=== PATIENT | female | born 1930 | race Caucasian/White ===

== ENCOUNTER 2017-08-22 09:51 | Emergency (ER) | payer MEDICARE ==
[~2017-08-22] VITALS: Ht 157.5 cm; Wt 65.8 kg
[~2017-08-22 09:51] MED LIST: CODACE30 PO; DIAZ5 PO; HYDACE5 PO; IBUP600 PO; METO25ER PO; NAPR500 PO; Norco 5-325 Ta1 EACH PO; ONDA4 PO; ONDA8 PO; PRAV10 PO; PRAV20 PO; PRED10 PO; TIMDOROPSO
[2017-08-22 10:33] LABS: BASOPHILS ABSOLUTE AUTO 0.06 K/mm3 (0.00-0.23); BASOPHILS PERCENT AUTO 1 % (0-2); EOSINOPHILS ABSOLUTE AUTO 0.12 K/mm3 (0.00-0.68); EOSINOPHILS PERCENT AUTO 1 % (0-6); Hematocrit 36.2 % (33.0-51.0); Hemoglobin 11.8 g/dL (11.5-16.0); IMMATURE GRAN ABSOLUTE AUTO 0.03 K/mm3 (0.00-0.10); IMMATURE GRAN PERCENT AUTO 0 % (0-1); LYMPHOCYTES ABSOLUTE AUTO 1.46 K/mm3 (0.84-5.20); LYMPHOCYTES PERCENT AUTO 17 % (21-46); MONOCYTES ABSOLUTE AUTO 0.74 K/mm3 (0.16-1.47); MONOCYTES PERCENT AUTO 9 % (4-13); Mean Corpuscular HGB Conc 32.6 g/dL (31.5-36.5); Mean Corpuscular Volume 89 fL (80-100); Mean Platelet Volume 11.2 fL (9.1-12.4); NEUTROPHILS ABSOLUTE AUTO 6.24 K/mm3 (1.96-9.15); NEUTROPHILS PERCENT AUTO 72 % (41-73); Platelet Count 251 K/mm3 (150-400); RDW Standard Deviation 45.4 fL (35.1-46.3); Red Blood Cell Count 4.07 M/mm3 (3.80-5.20); White Blood Cell Count 8.65 K/mm3 (4.00-11.30)
[2017-08-22 10:49] LABS: Anion Gap 12 mmol/L (6-16); Blood Urea Nitrogen 19 mg/dL (8-24); Bun/Creatinine Ratio 28.6 (12.0-20.0); CO2, Blood 23 mmol/L (21-32); Calcium, Blood 8.7 mg/dL (8.5-10.1); Chloride, Blood 107 mmol/L (98-108); Creatinine, Blood 0.66 mg/dL (0.40-1.00); Glomerular Filtration Rate >60 (60-); Glucose, Blood 104 mg/dL (70-99); Potassium, Blood 3.6 mmol/L (3.5-5.5); Sodium, Blood 142 mmol/L (136-145)
[2017-08-22] MEDS ORDERED: Norco 5-325 Ta1 EACH PO (11:43)
== END 2017-08-22 12:38 | disposition home or self-care (01) ==
LOC: ER 09:51
PROVIDERS: Emergency Medicine
DX: S01.112A Laceration without foreign body of left eyelid and periocular area, initial encounter (principal); Z79.899 Other long term (current) drug therapy; Z79.52 Long term (current) use of systemic steroids; I10 Essential (primary) hypertension; W01.198A Fall on same level from slipping, tripping and stumbling with subsequent striking against other object, initial encounter
CPT/HCPCS: 12011; 29125; 36415; 70450; 73110; 80048; 85025; 93005; 93010; 96374; 99284; J3010

== ENCOUNTER 2019-04-23 17:37 | Emergency (ER) | payer MEDICARE ==
[~2019-04-23] VITALS: Ht 157.5 cm; Wt 52.2 kg
[2019-04-23 20:00] LABS: Calcium, Ionized (POC) 1.08 mmol/L (1.10-1.46); Chloride (POC) 105 mmol/L (98-108); Creatinine (POC) 0.7 mg/dL (0.6-1.0); Glucose (ISTAT POC) 84 mg/dL (70-99); Hemoglobin (POC) 11.6 g/dL (12.0-16.0); Potassium (POC) 3.4 mmol/L (3.5-5.5); Sodium (POC) 139 mmol/L (135-148); Total CO2 (POC) 25 mmol/L (21-32)
== END 2019-04-23 21:02 | disposition home or self-care (01) ==
LOC: ER 17:37
PROVIDERS: Emergency Medicine
DX: M79.18 Myalgia, other site (principal); Z79.899 Other long term (current) drug therapy; I10 Essential (primary) hypertension; E78.5 Hyperlipidemia, unspecified
CPT/HCPCS: 36415; 80047; 85014; 93005; 93010; 99284-25

== ENCOUNTER 2019-08-20 13:59 | Observation (INO) | payer MEDICARE ==
[~2019-08-20] VITALS: Ht 152.4 cm; Wt 52.9 kg
[~2019-08-20 13:59] MED LIST changes: -METO25ER PO
[2019-08-20 14:25] LABS: Source, Urine Catheter
[2019-08-20 14:30] LABS: BASOPHILS ABSOLUTE AUTO 0.05 K/mm3 (0.00-0.23); BASOPHILS PERCENT AUTO 0 % (0-2); EOSINOPHILS ABSOLUTE AUTO 0.01 K/mm3 (0.00-0.68); EOSINOPHILS PERCENT AUTO 0 % (0-6); Hematocrit 44.2 % (33.0-51.0); Hemoglobin 14.2 g/dL (11.5-16.0); IMMATURE GRAN ABSOLUTE AUTO 0.08 K/mm3 (0.00-0.10); IMMATURE GRAN PERCENT AUTO 1 % (0-1); LYMPHOCYTES PERCENT AUTO 7 % (21-46); MONOCYTES ABSOLUTE AUTO 0.68 K/mm3 (0.16-1.47); MONOCYTES PERCENT AUTO 6 % (4-13); Mean Corpuscular HGB 29.6 pg (26.0-34.0); Mean Corpuscular HGB Conc 32.1 g/dL (31.5-36.5); Mean Corpuscular Volume 92 fL (80-100); Mean Platelet Volume 12.2 fL (9.1-12.4); NEUTROPHILS PERCENT AUTO 86 % (41-73); Platelet Count 226 K/mm3 (150-400); RDW Coefficient Variation 14.1 % (11.7-14.2); RDW Standard Deviation 47.9 fL (35.1-46.3); Red Blood Cell Count 4.79 M/mm3 (3.80-5.20); White Blood Cell Count 11.72 K/mm3 (4.00-11.30)
[2019-08-20 14:32] LABS: Bilirubin, Urine Neg (Neg); Blood, Urine 2+ (Neg); Glucose Qualitative, Urine Neg (Neg); Ketones, Urine 3+ (Neg); Leukocyte Esterase, Urine Neg (Neg); Nitrite, Urine Neg (Neg); Protein, Urine 3+ (Neg); Specific Gravity, Urine 1.015 (1.003-1.022); Urobilinogen, Urine NORM (Normal); pH, Urine 6.5 (5.0-8.0)
[2019-08-20 14:44] LABS: Albumin, Blood 3.8 g/dL (3.4-5.0); Anion Gap 12 mmol/L (6-16); Blood Urea Nitrogen 25 mg/dL (8-24); CO2, Blood 22 mmol/L (21-32); Calcium, Blood 9.5 mg/dL (8.5-10.1); Chloride, Blood 105 mmol/L (98-108); Glucose, Blood 92 mg/dL (70-99); Potassium, Blood 4.5 mmol/L (3.5-5.5); Sodium, Blood 139 mmol/L (136-145)
[2019-08-20 14:47] LABS: Appearance, Urine Clear (Clear); Color, Urine Yellow (P-Yellow)
[2019-08-20 14:50] LABS: Alanine Aminotransfer (ALT/SGP 18 U/L (12-78); Albumin/Globulin Ratio 0.9 (0.8-1.8); Alk Phos 99 U/L (50-136); Aspartate Aminotrans (AST/SGOT 23 U/L (12-37); Bilirubin, Total 0.8 mg/dL (0.1-1.0); Bun/Creatinine Ratio 27.3 (12.0-20.0); Creatinine, Blood 0.92 mg/dL (0.40-1.00); Globulin, Blood 4.3 g/dL (2.2-4.0); Glomerular Filtration Rate >60 (60-); Total Protein, Blood 8.1 g/dL (6.4-8.2)
[2019-08-20 14:51] LABS: Bacteria Few /hpf; Hyaline Casts 0-2 /lpf (0-2); Mucus Light (0-Heavy); Red Blood Cells, Urine Not Seen /hpf (0-2); Squamous Epithelial Cells Rare /hpf (Few); White Blood Cells, Urine Rare /hpf (0-5)
[2019-08-20] MEDS ORDERED: METO25ER PO (16:34)
[2019-08-20] MEDS ORDERED: LATA.005SO BOTHEYES (16:35)
[2019-08-20 16:52] LABS: CPK Creatine Kinase 115 U/L (26-193); Troponin I <0.015 ng/mL (0.000-0.040)
--- NOTE | 2019-08-20 22:50 | NUR ---
PATIENT BEING ADMITTED FOR AMS, METABOLIC ENCEPHALOPATHY. PATIENT ARRIVED TO THE FLOOR VIA GURNEY, TRANSFERRED TO BED WITH SLIDE ASSIST. PATIENT WHEN ASKED ORIENTATION QUESTIONS IS UNABLE TO STATE NAME, , OR ANSWER ANY OF THE OTHER QUESITONS. IN FACT SHE DID NOT SAY ANYTHING AT ALL. SHE WAS VERY WITHDRAWN, FLAT, ALMOST IN A FEARFUL QUIT MANOR. ORIENTED HER TO WHAT WAS GOING ON, BUT THIS DID NOT SEEM TO HELP. SHE WAS STILL WITHDRAWN, SHE DID FOLLOW INSTRUCTIONS BUT ONLY SAID ONE WORD THE ENTIRE TIME. ADMISSION COMPLETED BY MEDICAL RECORDS ONLY. INSTRUCTED STAVE MACHINE TENDER LIGHT BUT DONT THINK THE PATIENT WILL BE ABLE TO USE IT. OFFERED TO TAKE HER TO THE BATHROOM BUT THIS IS WHEN SHE SAID NO. BED ALARM ON.WILL CONTINUE TO MONITOR.
[2019-08-21 05:30] LABS: Hematocrit 35.6 % (33.0-51.0); Hemoglobin 11.2 g/dL (11.5-16.0); Mean Corpuscular HGB 28.9 pg (26.0-34.0); Mean Corpuscular HGB Conc 31.5 g/dL (31.5-36.5); Mean Corpuscular Volume 92 fL (80-100); Mean Platelet Volume 12.1 fL (9.1-12.4); Platelet Count 182 K/mm3 (150-400); RDW Coefficient Variation 14.2 % (11.7-14.2); RDW Standard Deviation 47.7 fL (35.1-46.3); Red Blood Cell Count 3.88 M/mm3 (3.80-5.20)
--- NOTE | 2019-08-21 05:44 | NUR ---
SHIFT SUMMARY: LICO WAS ADMITTED LAST NIGHT FOR AMS, AND METABOLLIC ENCEPHALOPATHY. SHE IS QUITE AND DOES NOT SPEAK MUCH. SHE IS UNABLE TO STATE WHO SHE IS, FAMILY HISTORY, MEDICAL HISTORY, OR WHERE SHE IS AT. SHE HAS SAID 2 WORDS ALL SHIFT SINCE SHE ARRIVED. WHEN ASKING A QUESTION SHE JUST STARES OFF IN A DAZE. SHE DOES FOLLOW DIRECTIONS THOUGH. NEURO CHECKS HAVE REMAINED THE SAME WITH NO CHANGES TO COGNITION, AND EVERY THING ELSE NEGATIVE. IV HAS REMAINED PATENT AND INFUSING FLUIDS. SHE HAS NOT NEEDED TO GET UP TO USE THE BATHROOM ALL NIGHT BUT DID VOID IN THE ER PRIOR TO GETTING TO THE FLOOR. SHE HAS REMAINED SLEEPING THROUGHOUT THE SHIFT. BED ALARM HAS REMAINED ON. CALL LIGHT HAS REMAINED IN REACH.
[2019-08-21 05:49] LABS: Anion Gap 10 mmol/L (6-16); Blood Urea Nitrogen 27 mg/dL (8-24); Bun/Creatinine Ratio 39.4 (12.0-20.0); CO2, Blood 21 mmol/L (21-32); Calcium, Blood 8.2 mg/dL (8.5-10.1); Chloride, Blood 110 mmol/L (98-108); Creatinine, Blood 0.69 mg/dL (0.40-1.00); Glomerular Filtration Rate >60 (60-); Glucose, Blood 73 mg/dL (70-99); Potassium, Blood 3.7 mmol/L (3.5-5.5); Sodium, Blood 141 mmol/L (136-145)
--- NOTE | 2019-08-21 07:57 | NUR ---
PT IS AWAKE, SMILES WHEN SPOKEN TO, CALM HOWEVER SHE CONTINUES FORGETFUL, UNABLE TO STATE HER NAME OR BIRTHDAY. WHEN CALL BY NAME & REORIENTED TO BD SHE RECOGNIZES. SHE STATE NO DISCOMFORT @ THIS TIME.
--- NOTE | 2019-08-21 16:21 | NUR ---
summary PT HAS BEEN FLAT, STARES BLANKLY. SHE IS UNABLE TO STATE NAME OR DATE. NODS YES/NO TO SIMPLE QUESTIONS. ABLE TO MAKE KNOWN NO DISCOMFORT. DR IBANEZ IN TO SEE HER THIS AM, STATE SEVERE DEMENTIA, SPOKE w FAMILY MEMBERS VIA PHONE. FAMILY ARRIVE THIS AFTERNOON, [employer], DEMONSTRATOR KNITTING IN TO DISCUSS TX PLAN w THEM. ST SAW PT THIS AM, ORDER SOFT DIET W SUPERVISION. PT HAS POOR APETITE, ONLY TAKING SM AMTS. IV NS CONTINUES @ 100 ML/HR. MARIELLA HAD PT UP AMBULATING IN CORTES TODAY w CANE, 1 ASSIST, GAIT SOMEWHAT UNSTEADY. CONTINUE BED ALARM. VSS.
--- NOTE | 2019-08-21 17:27 | NUR ---
PT CONTINUES CONFUSED. PULLED OUT IV. DR BARRAGAN NOTIFIED, ORDER NO IV ACCESS OK. MARINE SERVICES TECHNICIAN NOTIFIED, WILL MX FOR POSSIBLE TRANSFER TO SCU.
--- NOTE | 2019-08-21 19:39 | NUR ---
ABHIJIT IS MORE ALERT TODAY AND TALKATIVE. SHE IS ABLE TO STATE HER FIRST NAME BUT STILL DOES NOT REMEMBER HER BIRTHDATE, OR LAST NAME. FAMILY IS PRESENT FROM [facility]. SON REPORTS THIS IS NOT LIKE HER AND WOULD LIKE TO SEE HER MORE ORIENTED BEFORE THEY DISCHARGE HER HOME. SHE FOLLOWS DIRECTIONS, BUT FORGETS TO USE CALL LIGHT. BED ALARM IS ON. DISCUSSED WITH FAMILY ABOUT USING REMINDERS AND QUESTIONS THAT HELP TRIGGER HER MEMORY. WORD BOARD GIVEN TO THE PATIENT TO SEE IF SHE CAN COMMUNICATE BETTER WITH IT. WILL CONTINUE TO MONITOR FOR CHANGES.
--- NOTE | 2019-08-22 04:36 | NUR ---
SHIFT SUMMARY: ABHIJIT IS DOING BETTER. SHE HAS BEEN ABLE TO STATE FIRST NAME TONKRISTY. FAMILY WAS UP VISITING. SHE WAS MORE VERBAL IN NEEDS. CONTINUED TO WORK WITH HER REGARDING ORIENTATION. WROTE DOWN HER NAME ON PAPER, AND AGAIN SOME ORIENTATION ANSWERS ON A WHITE BOARD FOR HER TO REVIEW IN HOPES TO SPARK SOME MEMORY. SHE HAS BEEN PLEASANT AND COOPERATIVE. BED ALARM HAS REMAINED ON AND ONLY SOUNDED A FEW TIMES SHE FORGETS TO USE HER CALL LIGHT. SHE SLEPT PEACEFULLY THROUGHOUT THE NIGHT. VS HAVE REMAINED STABLE. NO FURTHER CHANGES TO REPORT.
[2019-08-22 13:40] LABS: Percent Saturation 14.3 % (15.0-50.0)
--- NOTE | 2019-08-22 17:02 | NUR ---
SUMMARY PT CONTINUES CONFUSED/DISORIENTED. SHE HAS MOMENTS WHEN SHE IS ABLE TO STATE HER FIRST NAME "ABHIJIT", HOWEVER UNABLE ELABORATE, STATE , STATE FAMILY MEMBER NAMES ETC. SHE @ X'S ANSWERS YES/NO APPROP, @ OTHER X'S NOT. SHE HAS PERIODS WHERE SHE DOES NOT MAKE EYE CONTACT, STARES BLANKLY. MENTATION IS HOWEVER SOMEWHAT IMPROVED SINCE ADMIT. SHE HAS AMBULATED IN CORTES w [facility], 1 ASSIST GB & CANE. SHE SHOWERED TODAY w ANALYSIS DIRECTOR ASSIST. PARTICIPATED w OCCTHER. SHE HAS BEEN UP IN CHAIR FOR MOST OF DAY, FAMILY MEMBERS w HER. FAMILY WAS ABLE TO CONFERENCE w DR BARRAGAN & [place], [employer] TO START PLANNING FOR SAFE D/C. VSS.
--- NOTE | 2019-08-23 04:07 | NUR ---
SHIFT SUMMARY PATIENT HAD NO ACUTE CHANGES OBSERVED. AXOX ONE TO SELF/FAMILY. ANSWERS YES/NO QUESTIONS. TAKES MEDICATION WHOLE X ONE EACH WITH APPLE SAUCE. NO IV ACCESS. BED ALARM, IMPULSIVE AT TIMES. DENIES PAIN, SOB, AND N/V. VSS/AFEBRILE. CALL LIGHT IN REACH. BED IN LOWEST POSITION. WILL CONTINUE TO [place] UNTIL DAY SHIFT NURSE ASSUMES CARE.
[2019-08-23 04:56] LABS: BASOPHILS ABSOLUTE AUTO 0.05 K/mm3 (0.00-0.23); BASOPHILS PERCENT AUTO 1 % (0-2); EOSINOPHILS ABSOLUTE AUTO 0.22 K/mm3 (0.00-0.68); EOSINOPHILS PERCENT AUTO 3 % (0-6); Hematocrit 36.9 % (33.0-51.0); Hemoglobin 11.6 g/dL (11.5-16.0); IMMATURE GRAN ABSOLUTE AUTO 0.02 K/mm3 (0.00-0.10); IMMATURE GRAN PERCENT AUTO 0 % (0-1); LYMPHOCYTES ABSOLUTE AUTO 1.47 K/mm3 (0.84-5.20); LYMPHOCYTES PERCENT AUTO 20 % (21-46); MONOCYTES ABSOLUTE AUTO 0.81 K/mm3 (0.16-1.47); MONOCYTES PERCENT AUTO 11 % (4-13); Mean Corpuscular HGB 29.1 pg (26.0-34.0); Mean Corpuscular HGB Conc 31.4 g/dL (31.5-36.5); Mean Corpuscular Volume 93 fL (80-100); Mean Platelet Volume 12.6 fL (9.1-12.4); NEUTROPHILS ABSOLUTE AUTO 4.68 K/mm3 (1.96-9.15); NEUTROPHILS PERCENT AUTO 65 % (41-73); Platelet Count 178 K/mm3 (150-400); RDW Coefficient Variation 13.8 % (11.7-14.2); RDW Standard Deviation 47.4 fL (35.1-46.3); Red Blood Cell Count 3.99 M/mm3 (3.80-5.20); White Blood Cell Count 7.25 K/mm3 (4.00-11.30)
[2019-08-23 05:33] LABS: Alanine Aminotransfer (ALT/SGP 21 U/L (12-78); Albumin, Blood 2.6 g/dL (3.4-5.0); Albumin/Globulin Ratio 0.8 (0.8-1.8); Alk Phos 69 U/L (50-136); Anion Gap 7 mmol/L (6-16); Aspartate Aminotrans (AST/SGOT 66 U/L (12-37); Bilirubin, Total 0.4 mg/dL (0.1-1.0); Blood Urea Nitrogen 18 mg/dL (8-24); Bun/Creatinine Ratio 26.7 (12.0-20.0); CO2, Blood 26 mmol/L (21-32); Calcium, Blood 8.4 mg/dL (8.5-10.1); Chloride, Blood 108 mmol/L (98-108); Creatinine, Blood 0.67 mg/dL (0.40-1.00); Globulin, Blood 3.4 g/dL (2.2-4.0); Glomerular Filtration Rate >60 (60-); Glucose, Blood 101 mg/dL (70-99); Potassium, Blood 3.1 mmol/L (3.5-5.5); Sodium, Blood 141 mmol/L (136-145)
--- NOTE | 2019-08-23 17:01 | NUR ---
AOX1 AND COOPERATIVE OF CARE. PT WITHDRAWN AND DOES NOT ANSWER QUESTIONS MOST OF THE TIME. PT NEEDS ENCOURAGEMENT TO DRINK. FAMILY HAS BEEN IN ROOM AND PT SEEMS TO LIKE TO COMPANY. PT UP IN CHAIR FOR MOST OF THE DAY AND IS A ONE PERSON TO TRANSFER. PT DOES NOT CALL ON HER OWN. BED ALARM IN PLACE.
--- NOTE | 2019-08-23 18:31 | NUR ---
PT HAS NOT VOIDED TODAY. BLADDER SCAN SHOWED 133MLS. WILL CONTINUE TO MONITOR.
--- NOTE | 2019-08-23 22:34 | NUR ---
08/23/19 9362 PT LAYING IN BED AND PULLED OUT IV. IV NEEDLE AND DRESSING LAYING ON BED. WILL NOTIFY
--- NOTE | 2019-08-24 04:35 | NUR ---
08/24/19 0410 BED ALARM SOUNDING AND PT HAD LEGS OVER SIDERAIL. EDD WRIST RESTRAINTS IN PLACE. SENIOR WEB APPLICATIONS DEVELOPER ASSISTED HER TO BSC BUT NO VOIDING. BLADDER SCAN = 548 ML. RN WILL NOTIFY MD BOX SEALING INSPECTOR.
[2019-08-24 05:48] LABS: Source, Urine Catheter
[2019-08-24 05:53] LABS: Appearance, Urine Clear (Clear); Bilirubin, Urine Neg (Neg); Blood, Urine 1+ (Neg); Color, Urine Yellow (P-Yellow); Glucose Qualitative, Urine Neg (Neg); Ketones, Urine Neg (Neg); Leukocyte Esterase, Urine Neg (Neg); Nitrite, Urine Neg (Neg); Protein, Urine Neg (Neg); Specific Gravity, Urine 1.015 (1.003-1.022); Urobilinogen, Urine NORM (Normal); pH, Urine 6.5 (5.0-8.0)
[2019-08-24 06:00] LABS: Bacteria Few /hpf; Mucus Light (0-Heavy); Squamous Epithelial Cells Not Seen /hpf (Few); White Blood Cells, Urine 0-2 /hpf (0-5)
--- NOTE | 2019-08-24 07:45 | NUR ---
08/24/[address] CATHED DONE WITH 600 ML CLEAR,YELLOW URINE OUTPUT. UA SENT TO LAB. PT MORE AWAKE AND INTERACTIVE WITH STAFF THIS AM. PT STILL CONFUSED X 4. VITALS STABLE. REPOSITIONED Q 2 HOURS WITH PILLOWS. PT DID NOT VOID THIS SHIFT AND THUS HAD TO BE CATHED.
--- NOTE | 2019-08-24 11:50 | NUR ---
Bladder scan volume was 322 no post void, pt said no to using bedside commode. Attend checked and no void. Equipment was cleaned and put away.
--- NOTE | 2019-08-24 17:21 | NUR ---
PT AOX1 AND COOPERATIVE OF CARE. PT CONTINUES TO HAVE FLUIDS RUNNING AT THIS TIME. PT HAD BLADDER SCAN X3 FIRST 2 WERE JUST OVER 300MLS. NOTIFIED DR BARRAGAN AND PUT ORDER IN TO STRAIGHT CATH IF OVER 450MLS. PT REQUESTED TO GO TO RESTROOM AND DID VOID, BUT MISSED HAT AND WAS UNMEASURED. BLADDER SCAN POST VOID WAS 193MLs. PT WAS UP A LOT TODAY IN CHAIR AND IS A ONE PERSON ASSIST. BED ALARM IS IN PLACE AND WILL CONTINUE TO MONITOR. PT DENIES PAIN AND DOES NOT APPEAR TO BE HAVING ANY AT THIS TIME.
--- NOTE | 2019-08-25 00:48 | NUR ---
08/25/19 0040 PT SITTING ON SIDE OF BED AND WAS ABLE TO GET OUT OF LEFT WRIST RESTRAINT. WHEN ASKED WHAT SHE NEEDED SHE JUST SAID, "I DON'T KNOW." RE-ORIENTED HER TO TIME AND SURROUNDINGS. FLUIDS AND PUDDING GIVEN. RESTRAINT TO LEFT WRIST REAPPLIED.
--- NOTE | 2019-08-25 03:14 | NUR ---
08/25/19 0310 VITALS TAKEN AFTER ASSISTING PT UP TO BSC FOR VOIDING OF 700 ML CLEAR, YELLOW URINE. PT DRANK SOME WATER. REFER TO INTAKE AND OUTPUT SECTION OF CHART. PT LAYING ON RT. SIDE WITH PILLOWS.
--- NOTE | 2019-08-25 06:33 | NUR ---
08/25/19 0630 SLEEPING WELL THIS AM. VOIDED TWICE 600 AND 700 ML. PT PICKS AT IVS AND TAPE WHEN RESTRAINTS OFF. UNEVENTFUL NIGHT.
--- NOTE | 2019-08-25 17:01 | NUR ---
Shift Summary A/O to self. Patient was nonverbal when this RN started the shift; however, as the day progressed, patient was able to answer simple "yes" "no" questions and then began conversating with family. Conversation was minimal though. Up in chair for meals, pt was able to feed self without cues. Slight edema in lower extremities (see shift assessment). Denies pain and discomfort. 1P c gait and cane to bathroom. Pt has been continent, though pt requires staff to inquire about bathroom needs as pt is unable to make needs known. Family has been at bedside for most of the afternoon. No acute concerns at this time.
--- NOTE | 2019-08-25 23:07 | NUR ---
08/25/19 3571 RESTRAINTS NOT NEEDED PT NO LONGER ON IV FLUIDS. TAKING ORAL INTAKE FAIR PER DAY SHIFT RN.
[2019-08-26 05:34] LABS: Anion Gap 5 mmol/L (6-16); Blood Urea Nitrogen 17 mg/dL (8-24); CO2, Blood 26 mmol/L (21-32); Calcium, Blood 8.4 mg/dL (8.5-10.1); Chloride, Blood 109 mmol/L (98-108); Creatinine, Blood 0.61 mg/dL (0.40-1.00); Glomerular Filtration Rate >60 (60-); Glucose, Blood 94 mg/dL (70-99); Potassium, Blood 3.3 mmol/L (3.5-5.5); Sodium, Blood 140 mmol/L (136-145)
--- NOTE | 2019-08-26 06:40 | NUR ---
08/26/19 0600 SLEPT WELL THIS SHIFT. VITALS STABLE. DENIES ANY PAIN OR S/S. STILL ONLY ALERT TO SELF. VOIDING QUANITY SUFFICIENT. UNEVENTFUL NIGHT.
--- NOTE | 2019-08-26 14:15 | NUR ---
PT gave permission for care on 08/26/2019 at 1411
--- NOTE | 2019-08-26 14:27 | NUR ---
Permission for care given to student by patient at 14:20
--- NOTE | 2019-08-26 17:03 | NUR ---
Shift Summary A/Oxself. Family was at bedside for brief moment today. Per family, Medicare/Medicaid and [facility] will be in to interview patient tomorrow (08/27). Patient has been up in chair for all meals, denies pain. Able to maintain conversations and answers questions appropriately. No other concerns.
--- NOTE | 2019-08-27 02:05 | NUR ---
HAD APPLIED KOBAN TO SECURE IV SITE AFTER PT HAD REMOVED 2 PRIOR IV SALINE LOCKS AND SHE HAD REMOVED SMALL KOBAN. SECURED SITE LOOSELY SO IT WOUND NOT BE TOO TIGHT AND FOUND PT HAD REMOVED THE COBAN AND SALINE LOCK#3. SHE DOES NOT HAVE CURRENT IV MEDS WILL ASK FOR NO IV ACCESS ORDER. PT ALERT CONFUSED. CALM WATCHES TV AWAKE MOST OF SHIFT.
--- NOTE | 2019-08-27 05:25 | NUR ---
88 year old famale with cognitive decline and decreased ability to care for self lives alone has eval and possible placement for need for safe environment. PT ambivient and has removed the 3rd iv saline lock. Did not replace due to no current iv meds and repeated removal. calm and able to ambulate with minimal SBA with cane. Fed self 50% diet modified.
--- NOTE | 2019-08-27 16:24 | NUR ---
SHIFT SUMMARY PATIENT CONTINUES TO BE PLEASANTLY CONFUSED. NON CONVERSIVE WITH STAFF. RASH/REDNESS NOTED TO LEGS. NOTIFIED DR. DR. MUNOZ PLACED ORDERS FOR BENADRYL.
--- NOTE | 2019-08-28 01:12 | NUR ---
PATIENT OOB TO BSC TO VOID 150 DARK YELLOW URINE. POST VOID RESIDUAL SHOWS N0 FLUID IN THE BLADDER AT THIS TIME. GAVE 240 ML OF APPLEJUICE AND PT DRANK ALL OF IT. BTB AND SHE DENIES PAIN, SOB, NAUSEA. PATIENT FOLLOWS DIRECTION BUT SEEMS LOST IN THOUGHT, DIFFICULT FOR HER TO FOCUS, FREQUENT PROMPTING AND ENCOURAGEMENT TO DRINK.
--- NOTE | 2019-08-28 06:49 | NUR ---
END OF SHIFT: PATIENT REMAINS DISTANT AND WITHDRAWN, SHE SEEMS TO HAVE DIFFICULTY FOCUSING ON ANYTHING AND OFTEN HAS A DISTANT GAZE. SHE DOESNT REMEMBER HER BIRTHDAY. WE GOT HER OOB TO [facility] Q2 HOURS AND ASKED HER TO DRINK FLUIDS. WHICH HE DID. THIS IMPROVED HER OUTPUT. A POST VOID RESIDUAL SHOWED 0ML BLADDER VOLUME.
--- NOTE | 2019-08-28 16:39 | NUR ---
SHIFT SUMMARY LOTION APPLIED TO SHINS FROM RASH. PATIENT HAS SLEPT MUCH OF SHIFT. FAMILY STATED THEY ARE WORKING ON PLACEMENT AT THIS TIME. PATIENT CONTINUES TO BE NON CONVERSIVE. EATS FAIRLY ADEQUATELY. HAD A BM TODAY.
--- NOTE | 2019-08-29 06:35 | NUR ---
TIRE BALANCER SUMMARY NO ACUTE CHANGES THIS SHIFT. PT AAOX1, PLEASANT BUT CONFUSED AND IMPULSIVE. BED ALARM ON FOR SAFETY. 1 ASSIST TO BSC. PT HAS SLEPT MOST OF THE SHIFT. DENIES SOB, N/V, OR PAIN. VSS, WILL CONTINUE TO MONITOR.
[2019-08-29] MEDS ORDERED: EUCERIN ORIGIN250 ML TOP (11:50)
--- NOTE | 2019-08-29 16:41 | NUR ---
SHIFT SUMMARY PT RESTING QUIETLY AT START OF SHIFT, BUT WOKE FOR SHIFT REPORT. PT VERY QUIET MOST OF THE DAY. PT DOES NOT TALK MUCH AND WILL ONLY ANS YES/NO QUESTIONS. PER REPORT PT WITH ACUTE ONSET OF DEMENTIA. 1P ASSIST, UP TO CHAIR FOR MEALS. DR MUNOZ IN TO SEE PT THIS AM. D/C ORDERS PLACED. FAMILY IN LATER TO REPORT PT ABLE TO D/C TO [facility] COURT. FAMILY ASSISTED PT IN GETTING DRESSED. PT ASSISTED OUT TO CAR VIA W/C. NO C/O.
== END 2019-08-29 13:53 | disposition home or self-care (01) ==
LOC: ER 13:59 → ERHOLD 14:00 → MEDS 22:26 → ENPENDDIS 08-29 11:21 → MEDS 08-29 13:53
PROVIDERS: Emergency Medicine; Internal Medicine; Physician Assistant; ADMIT Internal Medicine
DX: E86.0 Dehydration (principal); F03.90 Unspecified dementia, unspecified severity, without behavioral disturbance, psychotic disturbance, mood disturbance, and anxiety; D64.9 Anemia, unspecified; E78.5 Hyperlipidemia, unspecified; L30.9 Dermatitis, unspecified; G93.40 Encephalopathy, unspecified; I10 Essential (primary) hypertension; H40.9 Unspecified glaucoma; Z79.899 Other long term (current) drug therapy; I67.82 Cerebral ischemia
CPT/HCPCS: 36415; 70450; 71045; 80048; 80053; 81001; 82550; 82607; 82728; 82746; 83540; 83550; 83874; 84443; 84484; 85025; 85027; 85651; 86592; 90686; 92507; 92523; 93005; 93010; 96360; 96361; 96372; 97116; 97162; 97165; 97530; 97535; 99285-25; G0008; G0378; J1650; J7030; J7120; P9612; Q0163

== ENCOUNTER → 2019-11-14 | Outpatient (CLI) | payer OTHER ==
[~2019-11-14] MED LIST changes: +EUCERIN ORIGIN250 ML TOP; +KETO15TC TOP; +LATA.005SO BOTHEYES; +METO25ER PO
[2019-11-14 12:03] LABS: Source, Urine Clean Catch
[2019-11-14 13:03] LABS: Bilirubin, Urine Neg (Neg); Blood, Urine 2+ (Neg); Glucose Qualitative, Urine Neg (Neg); Ketones, Urine Neg (Neg); Leukocyte Esterase, Urine 3+ (Neg); Nitrite, Urine Pos (Neg); Protein, Urine 2+ (Neg); Urobilinogen, Urine NORM (Normal)
[2019-11-14 13:20] LABS: Appearance, Urine Turbid (Clear); Color, Urine Yellow (P-Yellow)
[2019-11-14 13:24] LABS: White Blood Cells, Urine TNTC /hpf (0-5)
[2019-11-14 13:26] LABS: Bacteria Many /hpf; Red Blood Cells, Urine 0-2 /hpf (0-2); Squamous Epithelial Cells Not Seen /hpf (Few)
== END | disposition home or self-care (01) ==
LOC: LAB SHORT 11:58 → LAB 11:58
PROVIDERS: Family Medicine
DX: N39.0 Urinary tract infection, site not specified (principal)
CPT/HCPCS: 81001; 87077; 87086; 87186

== ENCOUNTER → 2020-04-28 | Outpatient (CLI) | payer OTHER ==
[2020-04-28 08:58] LABS: Source, Urine Clean Catch
[2020-04-28 09:35] LABS: Appearance, Urine Cloudy (Clear); Bilirubin, Urine Neg (Neg); Blood, Urine 3+ (Neg); Color, Urine Yellow (P-Yellow); Glucose Qualitative, Urine Neg (Neg); Ketones, Urine Neg (Neg); Leukocyte Esterase, Urine 3+ (Neg); Nitrite, Urine Neg (Neg); Protein, Urine 1+ (Neg); Urobilinogen, Urine NORM (Normal)
[2020-04-28 09:48] LABS: White Blood Cells, Urine TNTC /hpf (0-5)
[2020-04-28 09:50] LABS: Bacteria Many /hpf; Squamous Epithelial Cells Rare /hpf (Few)
== END ==
LOC: LAB SHORT 08:57
PROVIDERS: Family Medicine
DX: N39.0 Urinary tract infection, site not specified (principal)
CPT/HCPCS: 81001; 87077; 87086; 87186

== ENCOUNTER 2020-07-13 09:32 | Emergency (ER) | payer OTHER ==
[~2020-07-13] VITALS: Ht 162.6 cm; Wt 59.0 kg
[2020-07-13] MEDS ORDERED: BISA10S PR (09:38)
[2020-07-13] MEDS ORDERED: ACET325 PO (09:38)
[2020-07-13] MEDS ORDERED: QUET25 PO (09:39)
[2020-07-13] MEDS ORDERED: LATA.005SO BOTHEYES (09:39)
[2020-07-13] MEDS ORDERED: METO25ER PO (09:39)
[2020-07-13] MEDS ORDERED: FURO40 PO (09:39)
[2020-07-13] MEDS ORDERED: EUCERIN ORIGIN250 ML TOP (09:39)
[2020-07-13] MEDS ORDERED: LORA.5 PO (09:40)
[2020-07-13] MEDS ORDERED: KETO15TC TOP (09:40)
[2020-07-13] MEDS ORDERED: Q-Tussin100 MG/5 M PO (09:41)
[2020-07-13] MEDS ORDERED: LOPE2C PO (09:41)
== END 2020-07-13 10:42 | disposition home or self-care (01) ==
LOC: ER 09:32
DX: Z04.3 Encounter for examination and observation following other accident (principal); F03.90 Unspecified dementia, unspecified severity, without behavioral disturbance, psychotic disturbance, mood disturbance, and anxiety; Z66 Do not resuscitate; I10 Essential (primary) hypertension; E78.5 Hyperlipidemia, unspecified; Z79.899 Other long term (current) drug therapy
CPT/HCPCS: 99285

== ENCOUNTER → 2020-07-29 | Outpatient (CLI) | payer MEDICARE ==
[~2020-07-29] MED LIST changes: +ACET325 PO; +BISA10S PR; +CEPH500 PO; +FURO40 PO; +LOPE2C PO; +LORA.5; +LORA.5 PO; +Milk Of Ma400 MG/5 M PO; +Q-Tussin100 MG/5 M PO; +QUET25 PO; +SULTRIDS PO
[2020-07-29 16:37] LABS: Appearance, Urine Cloudy (Clear); Bilirubin, Urine Neg (Neg); Blood, Urine 2+ (Neg); Color, Urine Yellow (P-Yellow); Glucose Qualitative, Urine Neg (Neg); Ketones, Urine Neg (Neg); Leukocyte Esterase, Urine 3+ (Neg); Nitrite, Urine Pos (Neg); Protein, Urine 2+ (Neg); Specific Gravity, Urine 1.015 (1.003-1.022); Urobilinogen, Urine NORM (Normal)
[2020-07-29 16:46] LABS: White Blood Cells, Urine TNTC /hpf (0-5)
[2020-07-29 16:47] LABS: Squamous Epithelial Cells Rare /hpf (Few); Transitional Epithelial Cells Rare /hpf (0-Rare)
[2020-07-29 16:48] LABS: Bacteria Many /hpf
== END | disposition home or self-care (01) ==
LOC: LAB 13:15 → OLS 13:15 → LAB SHORT 13:15
PROVIDERS: Family Medicine
DX: N39.0 Urinary tract infection, site not specified (principal)
CPT/HCPCS: 81001; 87077; 87086; 87186

== ENCOUNTER 2020-08-09 21:17 | Inpatient (IN) | payer MEDICARE, OTHER ==
[~2020-08-09] VITALS: Ht 162.6 cm; Wt 51.1 kg
[~2020-08-09 21:17] MED LIST changes: -CEPH500 PO; -LORA.5; -Milk Of Ma400 MG/5 M PO; -SULTRIDS PO
[2020-08-09] MEDS ORDERED: SULTRIDS PO (21:53)
[2020-08-09] MEDS ORDERED: Milk Of Ma400 MG/5 M PO (21:55)
[2020-08-09 22:13] LABS: Source, Urine Catheter
[2020-08-09 22:14] LABS: BASOPHILS ABSOLUTE AUTO 0.02 K/mm3 (0.00-0.23); BASOPHILS PERCENT AUTO 0 % (0-2); EOSINOPHILS ABSOLUTE AUTO 0.42 K/mm3 (0.00-0.68); EOSINOPHILS PERCENT AUTO 5 % (0-6); Hematocrit 43.3 % (33.0-51.0); Hemoglobin 13.5 g/dL (11.5-16.0); IMMATURE GRAN ABSOLUTE AUTO 0.03 K/mm3 (0.00-0.10); IMMATURE GRAN PERCENT AUTO 0 % (0-1); LYMPHOCYTES ABSOLUTE AUTO 1.32 K/mm3 (0.84-5.20); LYMPHOCYTES PERCENT AUTO 16 % (21-46); MONOCYTES PERCENT AUTO 8 % (4-13); Mean Corpuscular HGB 29.6 pg (26.0-34.0); Mean Corpuscular HGB Conc 31.2 g/dL (31.5-36.5); Mean Corpuscular Volume 95 fL (80-100); Mean Platelet Volume 13.7 fL (9.1-12.4); NEUTROPHILS ABSOLUTE AUTO 5.95 K/mm3 (1.96-9.15); NEUTROPHILS PERCENT AUTO 71 % (41-73); Platelet Count 170 K/mm3 (150-400); RDW Coefficient Variation 14.3 % (11.7-14.2); RDW Standard Deviation 50.2 fL (35.1-46.3); Red Blood Cell Count 4.56 M/mm3 (3.80-5.20); White Blood Cell Count 8.44 K/mm3 (4.00-11.30)
[2020-08-09 22:15] LABS: Albumin, Blood 4.2 g/dL (3.4-5.0); Bilirubin, Total 0.2 mg/dL (0.1-1.0); Bun/Creatinine Ratio 17.4 (12.0-20.0); Calcium, Blood 9.4 mg/dL (8.5-10.1); Creatinine, Blood 3.45 mg/dL (0.40-1.00); Globulin, Blood 4.4 g/dL (2.2-4.0); Potassium, Blood 3.7 mmol/L (3.5-5.5); Total Protein, Blood 8.6 g/dL (6.4-8.2)
[2020-08-09 22:18] LABS: Appearance, Urine Clear (Clear); Bilirubin, Urine Neg (Neg); Blood, Urine Neg (Neg); Color, Urine Yellow (P-Yellow); Glucose Qualitative, Urine Neg (Neg); Ketones, Urine Neg (Neg); Leukocyte Esterase, Urine Neg (Neg); Nitrite, Urine Neg (Neg); Protein, Urine 1+ (Neg); Specific Gravity, Urine 1.015 (1.003-1.022); Urobilinogen, Urine NORM (Normal)
[2020-08-09 22:48] LABS: Creatinine, Urine Random 83.4 mg/dL (27.00-270.00)
--- NOTE | 2020-08-09 23:54 | NUR ---
Transfer report from [facility] with Dementia from [facility] with DNR status being admitted with ARF. Await admission
[2020-08-10 04:43] LABS: BASOPHILS ABSOLUTE AUTO 0.03 K/mm3 (0.00-0.23); BASOPHILS PERCENT AUTO 0 % (0-2); EOSINOPHILS PERCENT AUTO 4 % (0-6); Hematocrit 33.5 % (33.0-51.0); Hemoglobin 10.4 g/dL (11.5-16.0); IMMATURE GRAN ABSOLUTE AUTO 0.03 K/mm3 (0.00-0.10); IMMATURE GRAN PERCENT AUTO 0 % (0-1); LYMPHOCYTES ABSOLUTE AUTO 1.77 K/mm3 (0.84-5.20); LYMPHOCYTES PERCENT AUTO 26 % (21-46); MONOCYTES PERCENT AUTO 12 % (4-13); Mean Corpuscular HGB 29.7 pg (26.0-34.0); Mean Corpuscular Volume 96 fL (80-100); NEUTROPHILS ABSOLUTE AUTO 3.85 K/mm3 (1.96-9.15); NEUTROPHILS PERCENT AUTO 57 % (41-73); Platelet Count 147 K/mm3 (150-400); RDW Coefficient Variation 14.3 % (11.7-14.2); RDW Standard Deviation 50.1 fL (35.1-46.3); White Blood Cell Count 6.78 K/mm3 (4.00-11.30)
[2020-08-10 04:44] LABS: Mean Platelet Volume 13.2 fL (9.1-12.4)
[2020-08-10 05:13] LABS: Albumin, Blood 3.2 g/dL (3.4-5.0); Albumin/Globulin Ratio 0.9 (0.8-1.8); Bilirubin, Total 0.2 mg/dL (0.1-1.0); Bun/Creatinine Ratio 18.3 (12.0-20.0); Calcium, Blood 8.3 mg/dL (8.5-10.1); Creatinine, Blood 3.17 mg/dL (0.40-1.00); Globulin, Blood 3.4 g/dL (2.2-4.0); Potassium, Blood 3.6 mmol/L (3.5-5.5); Total Protein, Blood 6.6 g/dL (6.4-8.2)
--- NOTE | 2020-08-10 05:37 | NUR ---
89 year old Female admitted from [facility] with decreased LOC AMS ARF & has dementia & hx of dehydration. She will be DNR status purple band applied. She is alert confused & sets of bed alarm several times attempting to get oob unassisted. Weak unsteady gait. pleasant confusion. Recieved 1 l IVF in ER & recieved 350 ml of 1500 ml ordered of 1/2 ns at 75 ml hr. Recent urine culture 07/29/20 grew ECOLI UTI & PT has completed 6.5 days of DS to treat. Intermittant low oxygen sat was in the 70s once while sleeping applied oxygen 2 l NC for sat greater than 95%. PT poor historian unable to give hx of verify current med list. [facility] include current MAR. Recieved 1 of 2 part covid 19 vaccine on 07/24/20. Declined flu vaccine, may have recieved at [facility]. Seconf covid 19 vaccine due 08/11/20 per medical records.
--- NOTE | 2020-08-10 06:32 | NUR ---
PT arrived after midnight with AMS Decreased loc & ARF. No void attends in place. Order to bladder scan Q shift with bladder scan 392 this AM no void. Will offer toileting.
--- NOTE | 2020-08-10 13:02 | NUR ---
Pt sitting in chair upon arrival. Pt is pleasantly confused and is A&O to self only. Pt appears mildly anxious as evidenced by constant fidgeting with activity apron and the television guide. Pt is non sensical with one word conversations. Spoke with Bedside RN Jarek and discussed case. Called [facility] and spoke with facility RN Natacha. Discussed Pt's baseling function. Natacha reports Pt has history of falls but does ambulate with walker independently. Pt often uses furniture to assist with ambulation due to non compliant use of walker. Pt needs assistance with bathing, dressing, and is incontinent of bowel and bladder. Pt is able to feed her self and has a good appetite. Pt also has maintained weight. Pt not able to have any meaningful conversation. Called and spoke with Pt's son Rodolfo. Provided updat on plan of care. Engaged in therapeutic discussion regarding the importance of planning for the future as Pt's dementia progresses. Discussed hospice being appropriate in the future as disease progresses. Provided gentle and brief education on hospice philosophy. Discussed pending Pt's clinical course during hospital stay, Pt may not meet criteria for hospice as of yet but may in the near future. Discussed considering completing POLST with Rodolfo agreeable to complete POLST over the phone. Discussed life sustaining measures and options to choose over speaker phone as DILLAN Mary RN witnesses conversation. Rodolfo chooses DNR and comfort care for Pt. Rodolfo expresses his concerns regarding Pt coming to the hospital. He states Pt does better when she is able to remain in her familiar enviornment. He states prolonging Pt's life would add to her suffering. Continued therapeutic listening and answered questions. Spoke with Dr Hernandez and discussed case. Dr Hernandez signs POLST. Will deliver copy of POLST to medical records and orginal will be placed in Pt's chart to return home with Pt. Palliative Care will remain available.
--- NOTE | 2020-08-10 13:53 | NUR ---
TRANSFER TO ROOM 353- REPORT GIVEN TO LAI RICO PT TRANSFERED VIA BED. PT HAS BEEN ORIENTED TO SELF ONLY T/O THE DAY. PT ANSWERS YES/NO QUESTIONS BEST. PT DOES NOT FOLLOW DIRECTION WELL AND ATTEMPTS TO GET UP OUT OF BED/CHAIR FREQUENTLY. PT PLEASANT WITH CARE. NEW IV PLACED. PT TENDS TO POCKET FOODS, ATTEMPTED A MECHANICAL SOFT DIET BUT PT CONTINUED TO POCKET, PUREE DIET ORDERED. SON UPDATED. PALLIATIVE CARE IN TO EVALUATE PT AND NEW POLST PLACED. PT HAS BEEN ALERT AND UP TO CHAIR ALL MORNING. NO OTHER ACUTE CHANGES THUS FAR.
--- NOTE | 2020-08-10 17:32 | NUR ---
SHIFT SUMMARY PATIENT TRANSFERED ROOMS MID-AFTERNOON. PATIENT ALERT TO SELF THIS SHIFT. PATIENT ANSWERS QUESTIONS WITH YES/NO/I DON'T KNOW. PATIENT FREQUENTLY ATTEMPTS TO GET OUT OF BED WITH UNKNOWN DESTINATION. PATIENT REDIRECTABLE ONLY FOR SHORT PERIODS OF TIME. PATIENT UP IN CHAIR FOR A SHORT PERIOD THEN ATTEMPTED TO AMBULATE ONCE MORE. PATIENT ENCOURAGED TO LAY BACK IN BED, WHERE SHE HAS REMAINED.
--- NOTE | 2020-08-11 04:50 | NUR ---
SHIFT SUMMARY ASSUMED CARE OF PT AT 1900. PT IS ALERT BUT NOT ORIENTED TO ANYTHING. PT WILL ONLY ANSWER YES/NO QUESTIONS. PT IMPULSIVE AND GOT OUT OF BED ONCE TO USE THE BATHROOM. PT WAS 1P ASSIST TO BATHROOM. PT HAS DIFFICULTY FOLLWOING COMMANDS, SUCH TO SIT ON THE TOILET. HEART SOUNDS LIKE A MURMUR, LUNG SOUNDS HAVE CRACKLES IN THE L BASE. CALL LIGHT IN REACH, BED IN LOWEST POSITION.
[2020-08-11 05:53] LABS: Bun/Creatinine Ratio 20.6 (12.0-20.0); Calcium, Blood 8.1 mg/dL (8.5-10.1); Creatinine, Blood 1.89 mg/dL (0.40-1.00); Potassium, Blood 3.5 mmol/L (3.5-5.5)
--- NOTE | 2020-08-11 10:08 | NUR ---
Pt resting in bed and appears comfortable. Pt answers yes and no questions with occasional 2 to 3 word responses. Reviwed chart. No S/S of distress noted. Palliative Care will remain available.
[2020-08-11] MEDS ORDERED: QUET25 PO (13:33)
--- NOTE | 2020-08-11 13:37 | NUR ---
PT TO DISCHARGE TO [facility]. CALLED REPORT TO JIM. CHINYEREING D.C AT 1500
--- NOTE | 2020-08-11 13:44 | NUR ---
PENDING D/CHG. IV REMOVED INTACT. NO TLE.
[2020-08-11] MEDS ORDERED: LORA.5 (13:57)
--- NOTE | 2020-08-11 15:59 | NUR ---
PT DISCHARGE TO [facility]. REPORT CALLED PRIOR TO JIM EARLIER. PT D/C THRU TRANSPORT AT 1532
== END 2020-08-11 15:32 | disposition home or self-care (01) | DRG 683 ==
LOC: ER 21:17 → MEDS 23:13
PROVIDERS: Emergency Medicine; Internal Medicine; ADMIT Internal Medicine
DX: N17.9 Acute kidney failure, unspecified (principal); E87.0 Hyperosmolality and hypernatremia; G93.49 Other encephalopathy; E86.0 Dehydration; G30.9 Alzheimer's disease, unspecified; F02.80 Dementia in other diseases classified elsewhere, unspecified severity, without behavioral disturbance, psychotic disturbance, mood disturbance, and anxiety; I10 Essential (primary) hypertension; M35.3 Polymyalgia rheumatica; Z66 Do not resuscitate; Z20.822 Contact with and (suspected) exposure to COVID-19; H40.9 Unspecified glaucoma; F41.9 Anxiety disorder, unspecified; Z87.440 Personal history of urinary (tract) infections
CPT/HCPCS: 36415; 71045; 80048; 80053; 82570; 83880; 84295; 84300; 84540; 85025; 93005; 93010; 96360; 96361; 99285-25; A9270; J1644; J7120

== ENCOUNTER 2020-09-10 19:05 | Emergency (ER) | payer MEDICARE, OTHER ==
[~2020-09-10] VITALS: Ht 157.5 cm; Wt 54.4 kg
[~2020-09-10 19:05] MED LIST changes: +LORA.5; +Milk Of Ma400 MG/5 M PO; +SULTRIDS PO
[2020-09-10 19:50] LABS: BASOPHILS ABSOLUTE AUTO 0.06 K/mm3 (0.00-0.23); BASOPHILS PERCENT AUTO 1 % (0-2); EOSINOPHILS ABSOLUTE AUTO 0.02 K/mm3 (0.00-0.68); EOSINOPHILS PERCENT AUTO 0 % (0-6); Hematocrit 33.8 % (33.0-51.0); Hemoglobin 10.8 g/dL (11.5-16.0); IMMATURE GRAN ABSOLUTE AUTO 0.06 K/mm3 (0.00-0.10); IMMATURE GRAN PERCENT AUTO 1 % (0-1); LYMPHOCYTES ABSOLUTE AUTO 1.58 K/mm3 (0.84-5.20); LYMPHOCYTES PERCENT AUTO 12 % (21-46); MONOCYTES ABSOLUTE AUTO 0.85 K/mm3 (0.16-1.47); MONOCYTES PERCENT AUTO 7 % (4-13); Mean Corpuscular HGB 30.4 pg (26.0-34.0); Mean Corpuscular Volume 95 fL (80-100); Mean Platelet Volume 11.3 fL (9.1-12.4); NEUTROPHILS ABSOLUTE AUTO 10.15 K/mm3 (1.96-9.15); NEUTROPHILS PERCENT AUTO 80 % (41-73); Platelet Count 279 K/mm3 (150-400); RDW Coefficient Variation 14.4 % (11.7-14.2); RDW Standard Deviation 50.3 fL (35.1-46.3); Red Blood Cell Count 3.55 M/mm3 (3.80-5.20); White Blood Cell Count 12.72 K/mm3 (4.00-11.30)
[2020-09-10 20:09] LABS: Source, Urine Clean Catch
[2020-09-10 20:10] LABS: Albumin, Blood 3.5 g/dL (3.4-5.0); Albumin/Globulin Ratio 0.9 (0.8-1.8); Bilirubin, Total 0.1 mg/dL (0.1-1.0); Calcium, Blood 8.9 mg/dL (8.5-10.1); Globulin, Blood 3.8 g/dL (2.2-4.0); Potassium, Blood 4.4 mmol/L (3.5-5.5); Total Protein, Blood 7.3 g/dL (6.4-8.2)
[2020-09-10 20:18] LABS: Bilirubin, Urine Neg (Neg); Blood, Urine 1+ (Neg); Glucose Qualitative, Urine Neg (Neg); Ketones, Urine Neg (Neg); Leukocyte Esterase, Urine 1+ (Neg); Nitrite, Urine Neg (Neg); Protein, Urine 1+ (Neg); Urobilinogen, Urine NORM (Normal)
[2020-09-10 20:24] LABS: Appearance, Urine Hazy (Clear); Color, Urine Yellow (P-Yellow)
[2020-09-10 20:25] LABS: Bacteria Many /hpf; Red Blood Cells, Urine Rare /hpf (0-2); Squamous Epithelial Cells Few /hpf (Few)
[2020-09-10] MEDS ORDERED: CEPH500 PO (20:36)
== END 2020-09-10 21:27 | disposition home or self-care (01) ==
LOC: ER 19:05
PROVIDERS: Emergency Medicine
DX: N39.0 Urinary tract infection, site not specified (principal); I10 Essential (primary) hypertension; E78.5 Hyperlipidemia, unspecified; Z79.899 Other long term (current) drug therapy
CPT/HCPCS: 36415; 80053; 81001; 85025; 99285; A9270; P9612

== ENCOUNTER 2021-01-02 20:16 | Emergency (ER) | payer MEDICARE ==
[~2021-01-02] VITALS: Ht 152.4 cm; Wt 61.2 kg
[~2021-01-02 20:16] MED LIST changes: +CEPH500 PO
[2021-01-02 21:10] LABS: BASOPHILS ABSOLUTE AUTO 0.03 K/mm3 (0.00-0.23); BASOPHILS PERCENT AUTO 0 % (0-2); EOSINOPHILS PERCENT AUTO 1 % (0-6); Hematocrit 35.4 % (33.0-51.0); Hemoglobin 11.3 g/dL (11.5-16.0); IMMATURE GRAN ABSOLUTE AUTO 0.03 K/mm3 (0.00-0.10); IMMATURE GRAN PERCENT AUTO 0 % (0-1); LYMPHOCYTES ABSOLUTE AUTO 2.32 K/mm3 (0.84-5.20); LYMPHOCYTES PERCENT AUTO 32 % (21-46); MONOCYTES ABSOLUTE AUTO 0.59 K/mm3 (0.16-1.47); MONOCYTES PERCENT AUTO 8 % (4-13); Mean Corpuscular HGB Conc 31.9 g/dL (31.5-36.5); Mean Corpuscular Volume 91 fL (80-100); Mean Platelet Volume 12.4 fL (9.1-12.4); NEUTROPHILS ABSOLUTE AUTO 4.18 K/mm3 (1.96-9.15); NEUTROPHILS PERCENT AUTO 58 % (41-73); Platelet Count 208 K/mm3 (150-400); RDW Coefficient Variation 13.3 % (11.7-14.2); RDW Standard Deviation 44.4 fL (35.1-46.3); Red Blood Cell Count 3.89 M/mm3 (3.80-5.20); White Blood Cell Count 7.25 K/mm3 (4.00-11.30)
[2021-01-02 21:22] LABS: Albumin, Blood 3.6 g/dL (3.4-5.0); Albumin/Globulin Ratio 0.9 (0.8-1.8); Bilirubin, Total 0.2 mg/dL (0.1-1.0); Bun/Creatinine Ratio 26.7 (12.0-20.0); Calcium, Blood 8.9 mg/dL (8.5-10.1); Creatinine, Blood 1.16 mg/dL (0.40-1.00); Globulin, Blood 3.8 g/dL (2.2-4.0); Total Protein, Blood 7.4 g/dL (6.4-8.2)
== END 2021-01-02 22:20 ==
LOC: ER 20:16
PROVIDERS: Emergency Medicine
DX: Z00.00 Encounter for general adult medical examination without abnormal findings (principal); I10 Essential (primary) hypertension; E78.5 Hyperlipidemia, unspecified; Z79.899 Other long term (current) drug therapy
CPT/HCPCS: 80053; 85025; 93005; 93010; 99285-25